=== PATIENT | female | born 1960 | race Asian ===

== ENCOUNTER → 2016-11-17 | Outpatient (CLI) | payer OTHER ==
--- NOTE | 2016-11-17 11:49 | DX ---
Chest, PA and Lateral History: Viral upper respiratory tract infection, recurrent cough since March 2016 Comparison: February 27, 2016, November 26, 2012 Findings: Lungs are clear, without infiltrate or consolidation. Heart size is normal. There is no regulo nopathy or mass lesion. There is no pleural effusion or adenopathy.. Bones are unremarkable for age. Impression: Stable and normal. No radiographic evidence for pneumonia.
== END ==
LOC: BRMIMAGING 10:44
PROVIDERS: ATTEND Physician Assistant Medical
DX: J06.9 Acute upper respiratory infection, unspecified (principal)
CPT/HCPCS: 71020-PO

== ENCOUNTER → 2017-08-11 | Outpatient (CLI) | payer OTHER | LOC: BRMIMAGING 10:46 | PROVIDERS: ATTEND Family Medicine | DX: N20.1 Calculus of ureter (principal) | CPT/HCPCS: 74000-PO ==

== ENCOUNTER → 2017-08-17 | Outpatient (CLI) | payer OTHER | LOC: BRMIMAGING 13:46 | PROVIDERS: ATTEND Family Medicine | DX: R10.12 Left upper quadrant pain (principal) | CPT/HCPCS: 76770-PO ==